=== PATIENT | female | born 1990 | race Caucasian/White ===

== ENCOUNTER 2019-10-16 20:37 | Emergency (ER) | payer OTHER ==
[2019-10-16 20:57] VITALS: BP 105/72
--- NOTE | 2019-10-16 21:24 | UC ---
Throat Pain/Nasal Aamir HPI - HPI Summary HPI Summary: 28 y/o female presents to the urgent care c/o Sinus congestion and cough x2 weeks. Bilateral ear pain x3 days. Pt denies fever. - History of Current Complaint Chief Complaint: UCGeneralIllness Stated Complaint: EAR PAIN/COLD Time Seen by Provider: 10/16/19 21:15 Hx Obtained From: Patient Hx Last Menstrual Period: 10/16/19 Onset/Duration: Gradual Onset Pain Intensity: 7 - Allergies/Home Medications Allergies/Adverse Reactions: Allergies Allergy/AdvReac Type Severity Reaction Status Date / Time No Known Allergies Allergy Verified 10/16/19 20:54 Home Medications: Home Medications Amoxicillin PO (*) [Amoxicillin 875 MG (*)] 875 mg PO BID #19 tab 10/16/19 [Rx] Buprenorphine HCl/Naloxone HCl [Suboxone 12 mg-3 mg Sl Film] 24 mg PO DAILY 12/01 [History Confirmed 10/16/19] Fluticasone NASAL SPRAY 50MCG* [Flonase NASAL SPRAY 50MCG*] 2 spray BOTH NARES DAILY #1 btl 10/16/19 [Rx] PMH/Surg Hx/FS Hx/Imm Hx - Surgical History Surgical History: Yes Surgery Procedure, Year, and Place: - Social History Alcohol Use: Rare Substance Use Type: None 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 HEENT: -Head: atraumatic, non tender; no scalp dermatitis. -Eyes: sclera and conjunctiva clear, PERRLA, EOMI -Ears: no pre- or postauricular lymphadenopathy or erythema; B/L external ear canal impacted w/ cerumen unable to visualize TM's , RT pinna tenderness on palpation, -Nose/Face: erythematous and edematous nasal mucosa with yellowish rhinorrhea, positive frontal or maxillary sinus tender to palpation. -Mouth/Throat: Mucous membrane moist, posterior pharynx clear, no erythema or exudates. Neck: supple, FROM, nontender, no lymphadenopathy, no meningismus. Chest: Clear to auscultation, normal breath sounds Abd: soft, Bowel sounds active, Nontender. Back: no spinal or CVAT Neuro: A&O x4, GCS 15, no focal neuro deficits, normal behavior for age. Triage Information Reviewed: Yes Vital Signs: Initial Vital Signs Temp 97.8 F 10/16/19 20:55 Pulse 109 10/16/19 20:55 Resp 16 10/16/19 20:55 BP 105/72 10/16/19 20:55 Pulse Ox 99 10/16/19 20:55 Throat Pain/Nasal Course/Dx - Course Course Of Treatment: Pt w/ B/L external ear canal impacted w/ cerumen and left anterior cervical and preauricular lymphadenopathy and bacterial sinusitis on examination. B/L ear irrigation ordered. Irrigation performed by Nurse. Pt tolerated well procedure w/o any adverse effect. Left external w/ erythema and yellowish purulent discharge, LF TM injected w/ erythema, no light reflex, no perforation. Pt will be Tx for Otitis externa and Media. Pt Rx Amoxicillin PO and Cortisporin otic drops. Advised to continue w/ Advil PO for alleviate otalgia. Pt advised if not improvement of symptoms in 2-3 days to return to the clinic or f/u w/ her PCP for further treatment. Pt understood and agreed w/ plan of care. - Differential Dx/Diagnosis Differential Diagnosis/HQI/PQRI: Influenza, Laryngitis, Otitis Media, Pharyngitis, Sinusitis, URI Provider Diagnosis: Bilateral impacted cerumen, Acute bacterial sinusitis, Bilateral otitis media Discharge ED - Sign-Out/Discharge Documenting (check all that apply): Patient Departure - D/C home All imaging exams completed and their final reports reviewed: No Studies - Discharge Plan Condition: Stable Disposition: HOME Prescriptions: Amoxicillin PO (*) [Amoxicillin 875 MG (*)] 875 mg PO BID #19 tab Fluticasone NASAL SPRAY 50MCG* [Flonase NASAL SPRAY 50MCG*] 2 spray BOTH NARES DAILY #1 btl Patient Education Materials: Sinusitis (ED), Ear Infection (ED) Referrals: [facility] [Outside] - 3 Days Additional Instructions: 1- Please increase fluid intake and rest. take full course of antibiotics to avoid resistance. Take yogurts w/ probiotics or Culturelle to protect your GI system 2-Use Flonase nasal spray as directed to help drain fluid. Also buy saline drops to clear sinuses 3-Continue taking Ibuprofen PO 800mg PO to alleviates ear pain 4-Please f/u w/ your PCP in 3 days if symptoms do not improve for further management and treatment - Billing Disposition and Condition Condition: STABLE Disposition: Home
[2019-10-16] MEDS ORDERED: Amoxicillin PO (*) 500 MG CAP PO ONE (21:32)
== END 2019-10-16 22:14 | disposition home or self-care (01) ==
LOC: UCCORT 20:37
DX: H66.93 Otitis media, unspecified, bilateral (principal); H61.23 Impacted cerumen, bilateral; J01.90 Acute sinusitis, unspecified; F17.210 Nicotine dependence, cigarettes, uncomplicated
CPT/HCPCS: 99213; A9270-GY; G0463